=== PATIENT | female | born 1965 | race Caucasian/White ===

== ENCOUNTER 2019-06-24 10:17 | Emergency (ER) | payer OTHER ==
[~2019-06-24] VITALS: Ht 160 cm; Wt 103.4 kg
[2019-06-24 10:25] VITALS: Ht 160 cm; Wt 103.4 kg
[2019-06-24 12:55] VITALS: BP 144/68
[2019-06-24 13:15] LABS: microscopic required? YES; urine erythrocyte 1+ (NEGATIVE)
== END 2019-06-24 12:55 | disposition home or self-care (01) ==
LOC: ED 10:17
PROVIDERS: Emergency Medicine
DX: D25.9 Leiomyoma of uterus, unspecified (principal); E11.9 Type 2 diabetes mellitus without complications
CPT/HCPCS: Q0092